=== PATIENT | male | born 1940 | race Caucasian/White ===

== ENCOUNTER 2023-06-05 17:09 | Inpatient (IN) | payer MEDICARE, SELFPAY ==
--- NOTE | ~2023-06-05 | XR_ITS ---
EXAMINATION: XR CHEST CLINICAL INFORMATION: Weakness COMPARISON: None available. TECHNIQUE: 2 views of the chest were obtained. FINDINGS: The cardiac silhouette is enlarged. There is a left subclavian single chamber pacemaker. Location of the lead is uncertain. This projects over the region of expected region of the tricuspid valve. The lungs are clear. No pleural effusion or pneumothorax. Elevated right hemidiaphragm. There are degenerative changes of the spine. XR/XR chest 2V IMPRESSION: Enlarged cardiac silhouette. Left subclavian single chamber pacemaker. Location of the lead is uncertain.
[2023-06-05 17:27] VITALS: BP 155/76; PULSE 67; RESP 26; TEMP 36.8; O2SAT 96; BMI 35.3
--- NOTE | 2023-06-05 17:28 | ED_ITS ---
HPI - General Adult General Chief complaint: Dyspnea Stated complaint: difficulty breathing Time Seen by Provider: 06/05/23 19:34 Source: patient and family ( son) Mode of arrival: ambulatory Limitations: altered mental status History of Present Illness HPI narrative: 83-year-old male brought in by his son for further evaluation of concern of shortness of breath. Family started to notice the patient started to decline l for the past few months, patient has been declining fast over the past 10 days also son noted that the patient is short of breath today with any minimal exertion has been coughing with lung congestion. patient is unable to give history and history mostly obtained from his son at the bedside. Related Data Allergies Allergy/AdvReac Type Severity Reaction Status Date / Time No Known Drug Allergies Allergy Unknown NONE Verified 06/05/23 17:38 [NO KNOWN DRUG ALLERGIES] Review of Systems 2 Review of Systems: Yes Unobtainable due to mental status PMFSH Social History Social History Advance Directives: No Advance Directives Information Provided: No Physical Exam ED Vital Signs: Vital Signs - 24 hr 06/05/23 17:27 Temperature 98.2 F Pulse Rate 67 Respiratory Rate 26 H Blood Pressure 155/76 H Pulse Oximetry 96 Oxygen Delivery Method Room Air BMI result Body Mass Index 35.3 Vital signs have been reviewed and appear to be correct. Blood pressure elevated. Heart rate normal. Respiratory rate normal. Temperature normal. Oxygen saturation normal. Appearance: Alert. oriented x1 only person. No acute distress. Head: Normal external exam. Normocephalic. Atraumatic. No Coleman signs noted. No raccoon eyes noted Eyes: PERRLA. EOMI. Conjunctiva and sclera normal. Eyelids normal. ENT: TM's Normal. Pharynx normal. Uvula midline. Moist mucous membranes. No trismus noted. No drooling noted. No muffled voice noted. Neck: Normal inspection. Neck supple. FROM. No adenopathy. Thyroid Normal. No meningeal signs. No neck mass noted. CVS: Normal heart rate and rhythm. Heart sound normal. No murmurs noted. Pulses normal throughout. Respiratory: No respiratory distress. Painless inspiration. Breath sounds normal. No wheezes/rales/rhonchi noted. Chest nontender. No accessory muscle usage noted or decreased air movement noted. Abdomen: Soft and nontender. Bowel sounds normal in all 4 quadrants. No distention noted. No organomegaly noted. No visible injury noted. Back: No CVA tenderness. Full range of motion noted. Skin: Skin warm and dry. Normal skin color. Normal skin turgor. No rashes/lesions/lacerations noted. Extremities: No lower extremity edema. Extremities exhibit normal range of motion. Extremities nontender. Neuro: Cranial nerve exam: II-XII are grossly intact No motor deficit. No sensory deficit. Reflexes normal. 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 Not answering questions appropriately. no recent falls. no fevers. No sick contacts. AOX2. Bilateral inspiratory and expiratory wheezing, rhonchi to right lung base. audible wheezing. 2+ pitting edema to b/l LE. Full HPI, ROS and PE to be performed by the primary ED provider. Reevaluation(s) Reevaluation #1: 83-year-old male with undiagnosed dementia came in for cognitive deterioration for the past year that is noticed to be more abrupt over the past 10 days, patient also been having dyspnea, patient has a minimal exacerbation of CHF with influenza a that can be contributed to his symptoms today. Will admit the patient still waiting on urine sample to rule out UTI. Time: 20:45 Medical Decision Making Differential Diagnosis Differential Diagnoses: The differential diagnosis associated with the presentation includes ( CHF, pneumonia, RSV, influenza, COVID 19, pneumothorax, electrolyte abnormality, severe anemia, UTI.) Admission/Observation Consideration of admission/observation: Escalation of care including admission/observation considered Consult Healthcare Provider Management of the patient was discussed with: Hospitalist ( Dr. Vieira) Lab Data MDM Lab Attestation statement: I reviewed the patient's lab results. 06/05/23 17:54 06/05/23 17:54 Labs: Lab Results 06/05/23 06/05/23 Range/Units 17:54 18:00 WBC 11.3 H (4.8-10.8) X10*3/uL RBC 5.08 (4.60-5.80) X10*6/uL Hgb 13.9 L (14.0-18.0) g/dl Hct 42.9 (42.0-52.0) % MCV 84.4 (80.0-98.0) fL MCH 27.4 (27.0-33.0) pg MCHC 32.4 (31.0-36.0) g/dl RDW 16.7 H (11.0-16.0) % Plt Count 166 (160-400) X10*3/uL MPV 10.6 (9.4-12.4) fL Immature Gran % (Auto) 0.4 (0.0-0.4) % Neut % (Auto) 88.1 H (45-73) % Lymph % (Auto) 5.7 L (20-40) % [place] % (Auto) 5.3 (2-11) % Eos % (Auto) 0.3 (0-4) % Baso % (Auto) 0.2 (0-2) % Lymph # (Auto) 0.6 L (1.2-4.9) X10*3/uL [place] # (Auto) 0.6 (0.1-1.2) X10*3/uL Eos # (Auto) 0.0 (0.0-0.4) X10*3/uL Baso # (Auto) 0.0 (0.0-0.2) X10*3/uL Abs Immat Gran (auto) 0.05 H (0.00-0.03) X10*3/uL Absolute Neuts (auto) 10.0 H (2.0-8.3) x10*3/uL Absolute Nucleated RBC 0.000 (0.0-0.012) X10*3/uL Nucleated RBC % (auto) 0.0 (0.0-0.2) /100WBC PT 17.9 H (11.1-13.3) SEC INR 1.5 H (0.9-1.1) VBG pH 7.41 (7.32-7.43) VBG pCO2 42 mmHg VBG pO2 46 mmHg VBG HCO3 27 H (22-26) mmol/L VBG O2 Saturation 71.0 % VBG Base Excess 2.3 mmol/L Sodium 142 (135-145) mmol/L Potassium 4.0 (3.3-5.1) mmol/L Chloride 105 (96-108) mmol/L Carbon Dioxide 27 (22-29) mmol/L Anion Gap 14 (12-20) BUN 31 H (9-16) mg/dL Creatinine 1.44 H (0.5-1.4) mg/dL Estim Creat Clear Calc 47.1 Estimated GFR 47 Random Glucose 118 H (60-115) mg/dL Calcium 8.8 (8.4-10.2) mg/dL Magnesium 1.9 (1.6-2.6) mg/dL Ammonia 15 (13-55) umol/L Troponin I High Sens 60.2 H (<3.5-35.0) ng/L B-Natriuretic Peptide 277 H (<100) pg/mL Lipase 8 (8-78) U/L Influenza Type A (PCR) POSITIVE A (Negative) Influenza Type B (PCR) NEGATIVE (Negative) RSV RNA Qual (PCR) NEGATIVE (Negative) SARS-CoV-2 RNA (RT-PCR) NEGATIVE (Negative) Independent Interpretation I performed an independent interpretation of an: EKG ( sinus rhythm at 76 beats per minutes with frequent PVCs, left axis diffusion, no ST-T changes.) and Plain X-Ray (Enlarged cardiac silhouette. Left subclavian single chamber pacemaker. Location of the lead is uncertain. ) Radiology Impression Discussion of test interpretation with radiology: I have reviewed the radiologist's reading. Discharge Plan Discharge Clinical Impression: Influenza A Congestive heart failure Qualifiers: Heart failure type: unspecified Patient Disposition: Admitted As Inpatient
--- NOTE | 2023-06-05 17:30 | ECG_ITS ---
Test Reason : WEAKNESS Blood Pressure : / mmHG Vent. Rate : 076 BPM Atrial Rate : 000 BPM P-R Int : 000 ms QRS Dur : 114 ms QT Int : 412 ms P-R-T Axes : 000 -48 087 degrees QTc Int : 463 ms suspect V paced rhythm with PVCs Left axis deviation Abnormal ECG When compared with ECG of 01-NOV-2015 12:51, rhythm change Referred By: Nirmala Philippe Electronically Signed By:ABIEL VILLATORO
[2023-06-05 18:02] LABS: MANUAL DIFF FLAG NO
[2023-06-05 18:03] LABS: Basophils Percent Auto 0.2 % (0-2); Eosinophils Percent Auto 0.3 % (0-4); Hematocrit 42.9 % (42.0-52.0); Hemoglobin 13.9 g/dl (14.0-18.0); Imm Gran Abs Auto 0.05 X10*3/uL (0.00-0.03); Imm Gran Pct Auto 0.4 % (0.0-0.4); Lymphocytes Absolute Auto 0.6 X10*3/uL (1.2-4.9); Lymphocytes Percent Auto 5.7 % (20-40); Mean Corpuscular HGB Conc 32.4 g/dl (31.0-36.0); Mean Corpuscular Hemoglobin 27.4 pg (27.0-33.0); Mean Corpuscular Volume 84.4 fL (80.0-98.0); Mean Platelet Volume 10.6 fL (9.4-12.4); Monocytes Absolute Auto 0.6 X10*3/uL (0.1-1.2); Monocytes Percent Auto 5.3 % (2-11); Neutrophils Percent Auto 88.1 % (45-73); Platelet Count 166 X10*3/uL (160-400); Red Blood Count 5.08 X10*6/uL (4.60-5.80); Red Cell Distribution Width 16.7 % (11.0-16.0); White Blood Count 11.3 X10*3/uL (4.8-10.8)
[2023-06-05 18:05] LABS: Venous Blood Gas Refer to POC result
[2023-06-05 18:05] LABS: VBG Base Excess 2.3 mmol/L; VBG HCO3 27 mmol/L (22-26); VBG pCO2 42 mmHg; VBG pH 7.41 (7.32-7.43); VBG pO2 46 mmHg
[2023-06-05 18:11] LABS: Ammonia 15 umol/L (13-55)
[2023-06-05 18:18] LABS: Anion Gap 14 (12-20); Blood Urea Nitrogen 31 mg/dL (9-16); Calcium 8.8 mg/dL (8.4-10.2); Carbon Dioxide 27 mmol/L (22-29); Chloride 105 mmol/L (96-108); Creatinine Clr Calc Pharmacy 47.1; Estimated Glomerular Filt Rate 47; Glucose Random 118 mg/dL (60-115); Lipase 8 U/L (8-78); Magnesium 1.9 mg/dL (1.6-2.6); Sodium 142 mmol/L (135-145)
[2023-06-05 18:20] LABS: INTERNATIONAL NORM RATIO 1.5 (0.9-1.1); Prothrombin Time 17.9 SEC (11.1-13.3)
[2023-06-05 18:23] LABS: Troponin-I High Sensitivity 60.2 ng/L (<3.5-35.0)
[2023-06-05 18:24] LABS: B Type Natriuretic Peptide 277 pg/mL (<100)
[2023-06-05 18:46] LABS: Influenza A PCR POSITIVE (Negative); Influenza B PCR NEGATIVE (Negative); Resp Syncy Virus RNA Qual PCR NEGATIVE (Negative); SARS COV2 PCR INHOUSE NEGATIVE (Negative)
[2023-06-05 20:55] VITALS: BP 165/80; PULSE 62; RESP 26; O2SAT 97
[2023-06-05] MEDS: Furosemide 20 MG/2 ML VIAL IVPUSH ×2 (21:07→22:13)
--- NOTE | 2023-06-05 21:26 | P.HPHOSP_ITS ---
History of Present Illness Date of Service: 06/05/23 Attending physician on admission: Trenton Vieira Chief Complaint: SOB Pt is an 83-year-old male with a PMH significant for?unspecified CHF, HTN, HLD, BPH, and GERD who presents to the ED from home for further evaluation of shortness of breath. Patient is alert and and oriented to self only; HPI is obtained stat from chart and provider review. Apparently patient was brought in by his son who noticed patient had been slowly declining cognitively and physically for the past few months, then precipitously for the past 10 days. Patient has been confused, not answering questions appropriately, generally unable to care for himself. Patient likely has a non-diagnosed underlying dementia. Son brought patient to the ED today after noticing he was wheezing, and became significantly short of breath with minimal exertion. Of note, son is no longer at bedside and could not verify HPI, PMH, or code status. Son should be contacted tomorrow to verify all of this information. In the ED pt was afebrile, but tachypneic up to 26, hypertensive up to 165/80, and satting at 97% on RA. Labs were significant for patient testing positive for influenza type a, wbc's 11.3, BUN 31, creatinine 1.44, troponin 60.2, and BNP 277. CXR showed enlarged cardiac silhouette without overt pleural effusion. EKG demonstrated accelerated junctional rhythm with frequent PVCs. Pt was treated with furosemide 20 mg IV. Pt will be admitted to the hospital for treatment and further evaluation of acute unspecified CHF exacerbation in the setting of influenza infection. Review of Systems 2 Review of Systems: Unable to obtain due to patient's mentation [facility] Medical History (Updated 06/05/23 @ 22:17 by YUKI Glover) GERD (gastroesophageal reflux disease) HTN (hypertension) BPH (benign prostatic hyperplasia) HLD (hyperlipidemia) Social History Advance Directives: No Advance Directives Information Provided: No Meds Allergies Allergy/AdvReac Type Severity Reaction Status Date / Time No Known Drug Allergies Allergy Unknown NONE Verified 06/05/23 17:38 [NO KNOWN DRUG ALLERGIES] Physical Exam 2 Vital Signs and Narrative: Vital Signs: Last Vital Signs Temp 98.2 F 06/05/23 17:27 Pulse 62 12/26/23 20:55 Resp 26 H 06/05/23 20:55 BP 165/80 H 06/05/23 20:55 Pulse Ox 97 06/05/23 20:55 O2 Del Method Room Air 06/05/23 20:55 BMI result Body Mass Index 35.3 Constitutional: Alert, confused, unable to answer appropriately, in no acute distress. Mental Status: Oriented to person only, not to place, time, situation Eyes: Pupils are equal, round, and reactive to light. Ear, Nose, and Throat: Oropharynx clear, mucous membranes moist. Ears and nose without deformities. Trachea midline. Respiratory: Diffuse bilateral expiratory wheezing. Cardiovascular: S1, S2 regular. No murmurs, rubs, or gallops. Gastrointestinal: Abdomen soft, non-tender, non-distended. Normal bowel sounds. Neurologic: Cranial nerves II-XII are grossly intact bilaterally. No focal neurological deficits. Moves all extremities spontaneously. Skin: Warm, dry. Musculoskeletal: No cyanosis or clubbing. Extremities: 2+ bilateral pitting edema. Psychiatric: Confused. Results Labs 06/05/23 17:54 06/05/23 17:54 Labs: Laboratory Results - last 24 hr 06/05/23 06/05/23 17:54 18:00 MCV 84.4 MCH 27.4 MCHC 32.4 RDW 16.7 H Plt Count 166 MPV 10.6 Immature Gran % (Auto) 0.4 Neut % (Auto) 88.1 H Lymph % (Auto) 5.7 L [place] % (Auto) 5.3 Eos % (Auto) 0.3 Baso % (Auto) 0.2 Lymph # (Auto) 0.6 L [place] # (Auto) 0.6 Eos # (Auto) 0.0 Baso # (Auto) 0.0 Abs Immat Gran (auto) 0.05 H Absolute Neuts (auto) 10.0 H Absolute Nucleated RBC 0.000 Nucleated RBC % (auto) 0.0 PT 17.9 H INR 1.5 H VBG pH 7.41 VBG pCO2 42 VBG pO2 46 VBG HCO3 27 H VBG O2 Saturation 71.0 VBG Base Excess 2.3 Anion Gap 14 Estim Creat Clear Calc 47.1 Estimated GFR 47 Random Glucose 118 H Calcium 8.8 Magnesium 1.9 Ammonia 15 B-Natriuretic Peptide 277 H Lipase 8 Influenza Type A (PCR) POSITIVE A Influenza Type B (PCR) NEGATIVE RSV RNA Qual (PCR) NEGATIVE SARS-CoV-2 RNA (RT-PCR) NEGATIVE Imaging Radiologist's Impressions: Impressions Chest X-Ray 06/05/23 18:10 IMPRESSION: Enlarged cardiac silhouette. Left subclavian single chamber pacemaker. Location of the lead is uncertain. Assessment and Plan (1) Influenza A: Status: Acute (2) Congestive heart failure: Qualifiers: Heart failure type: unspecified Heart failure chronicity: acute Qualified Code(s): I50.9 - Heart failure, unspecified Status: Acute Plan Pt is an 83-year-old male with a PMH significant for?unspecified CHF, HTN, HLD, BPH, and GERD who presents to the ED from home for further evaluation of shortness of breath. Pt will be admitted to the hospital for treatment and further evaluation of acute unspecified CHF exacerbation in the setting of influenza infection. Acute unspecified CHF exacerbation Likely secondary to influenza infection Increasing SOB, dyspnea, bilateral pitting edema, elevated BNP Will treat with Lasix 20 mg IV b.i.d. Follow lytes, mg, I/O Daily weights, low-salt diet Echocardiogram Consider Cardiology consult Monitor on telemetry Influenza A infection Patient with increasing SOB, wheezing, dyspnea Not hypoxic Will treat with Solu-Medrol, DuoNebs, Tamiflu, and benzonatate Monitor respiratory status Question of AYSE Creatinine 1.44, baseline unknown Possibly cardio renal d/t CHF Treat as above Follow BMP Elevated troponin Initial troponin 60.2 EKG without significant ischemic changes Will repeat troponin Monitor on telemetry Question of dementia Will get PT evaluation Consider psychiatry consult HLD Continue statin BPH Continue tamsulosin GERD Continue PPI Full Code Attending:?Dr. Vieira DVT Prophylaxis: On Xarelto Pt will require a hospitalization of at least two nights for treatment of?acute unspecified CHF exacerbation in the setting of influenza infection. Due to patient's underlying significant comorbidities of suspected dementia and cardiac issues, patient require aggressive diuresing with IV Lasix and treated influenza infection with breathing treatments, Tamiflu, and IV steroids. Quality Stroke Does the patient have a stroke diagnosis?: No VTE Prior VTE?: No VTE Risk Level:: Medical - moderate - high VTE Device Contraindication: Treatment Not Indicated VTE Drug Contraindication: N/A - Med Ordered
--- NOTE | 2023-06-05 22:00 | PC.NURSE ---
Pt A&O to self, denies any pain, confused taking EKG leads off, attempting to get OOB without assist, Pt redirected back to bed, refusing straight cath. Pt tachypneic with exertion, RR 26, SpO2 97% on RA, lung sounds wheezy. BLL edema noted. Skin pink, warm and dry, yellow bruising noted to left upper arm. IV line placed.
[2023-06-05] MEDS: methylPREDNISolone Sod Succ 40 MG/ML VIAL IVPUSH (22:12)
[2023-06-05] MEDS: Oseltamivir Phosphate 30 MG CAPSULE PO (23:18)
[2023-06-05] MEDS: 0.9 % Sodium Chloride Flush 3 ML SYRINGE IVFLUSH (23:18)
[2023-06-06] VITALS (11 sets, daily range): BP systolic 135–164; BP diastolic 65–89; PULSE 58–80; RESP 14–20; TEMP 36.2–36.8; O2SAT 94–98; BMI 35.3
--- NOTE | 2023-06-06 | ECG_ITS ---
Test Reason : f/u abn ekg Blood Pressure : / mmHG Vent. Rate : 068 BPM Atrial Rate : 000 BPM P-R Int : 000 ms QRS Dur : 120 ms QT Int : 420 ms P-R-T Axes : 000 -33 159 degrees QTc Int : 446 ms Ventricular-paced rhythm Premature ventricular complexes Left axis deviation Abnormal ECG When compared with ECG of 05-JUN-2023 17:42, fewer PVCs Referred By: Bettye Castillo Electronically Signed By:ABIEL VILLATORO
[2023-06-06 05:54] LABS: Hematocrit 42.5 % (42.0-52.0); Hemoglobin 13.7 g/dl (14.0-18.0); Mean Corpuscular HGB Conc 32.2 g/dl (31.0-36.0); Mean Corpuscular Hemoglobin 26.9 pg (27.0-33.0); Mean Corpuscular Volume 83.3 fL (80.0-98.0); Mean Platelet Volume 10.6 fL (9.4-12.4); Platelet Count 152 X10*3/uL (160-400); Red Cell Distribution Width 16.5 % (11.0-16.0); White Blood Count 8.2 X10*3/uL (4.8-10.8)
[2023-06-06 06:09] LABS: Anion Gap 15 (12-20); Blood Urea Nitrogen 30 mg/dL (9-16); Calcium 8.5 mg/dL (8.4-10.2); Carbon Dioxide 23 mmol/L (22-29); Chloride 106 mmol/L (96-108); Creatinine Clr Calc Pharmacy 57.5; Estimated Glomerular Filt Rate 59; Glucose Random 187 mg/dL (60-115); Magnesium 1.8 mg/dL (1.6-2.6); Potassium 3.8 mmol/L (3.3-5.1); Sodium 140 mmol/L (135-145)
--- NOTE | 2023-06-06 06:32 | PC.NURSE ---
Pt assisted to side of stretcher for urinal use. Urine collected and sent to lab.
[2023-06-06 06:43] LABS: Appearance Urine Clear; Color Urine Yellow; Glucose Urine UA Negative (Negative); Leukocyte Esterase Urine Negative (Negative); Nitrite Urine Negative (Negative); Specific Gravity - Urine 1.015 (1.005-1.025); UMIC TRIGGER UACC YES; Urine Blood Trace (Negative); Urine Ketones Negative (Negative); Urine Protein Trace mg/dL (Neg-Trace)
[2023-06-06 06:45] LABS: Bacteria Urine None Seen (None Seen); RBC Urine 0-2 /HPF (0-2); Squamous Epithelial Cell Urine 0-2 /HPF (0-2); WBC Urine 0-5 /HPF (0-5)
--- NOTE | 2023-06-06 07:00 | CA_ITS ---
Transthoracic Echocardiogram Patient (Last, First, Middle): Go Singh, Gender: Male Date of : 1940 Age: 83 Procedure Date: 06/06/2023 Procedure Type: Transthoracic Echocardiogram Location: [facility] [place] Height: 175.26 cm Weight: 108.41 kg BSA: 2.23 m2 Heart Rate: bpm BP: 135 / 78 mmHg Shipping Support: Referring MD: Perez MIRZA Symptoms: CHF exacerbation Study Quality: Adequate ECG Rhythm: Undetermined Conclusions: - The left ventricular systolic function is normal. The visually estimated ejection fraction is between 65-70%. - There is severe septal asymmetric hypertrophy. - Paradoxical, low-flow, low gradient, moderate to severe aortic stenosis. - There is mild dilatation of the ascending aorta measuring 4.10 cm. Findings Left Ventricle Normal left ventricular cavity size. There is moderately increased left ventricular wall thickness. The left ventricular systolic function is normal. The visually estimated ejection fraction is between 65-70%. There is no evidence of regional wall motion abnormalities. Diastolic function is indeterminate on the basis of available data. There is severe septal asymmetric hypertrophy. Right Ventricle Mildly increased right ventricular cavity size. There is normal right ventricular systolic function. There is a pacemaker wire seen in the right ventricle. Atria The left atrium is moderately dilated. The right atrium is normal in size. Aortic Valve There is moderate calcification of the aortic valve. The peak aortic velocity is 2.69 m/s with a calculated peak gradient of 29 mmHg. The mean gradient is 15 mmHg. The aortic valve area is 0.97 cm2. There is no aortic valve regurgitation. Dimensionless index 0.26. Stroke volume index 24ml/m2. Paradoxical, low-flow, low gradient, moderate to severe aortic stenosis. Mitral Valve The mitral valve appears normal. There is mild mitral annular calcification. There is trace mitral valve regurgitation. There is no mitral valve stenosis. Pulmonic Valve The pulmonic valve is likely normal. Tricuspid Valve There is mild tricuspid valve regurgitation. There is no evidence of pulmonary hypertension. Great Vessels There is mild dilatation of the ascending aorta measuring 4.10 cm. Venous The inferior vena cava was not well visualized. Pericardium/Pleural There is no evidence of pericardial effusion. Prior Study Comparison No prior study available for comparison. Measurements 2D Linear Measurements IVSd: 1.68 0.6-0.9/0.6-1.0 cm LVIDd: 4.95 3.9-5.3/4.2-5.9 cm LVIDd Index: 2.22 2.4-3.2/2.2-3.1 cm/m2 LVIDs: 3.34 2.0-3.6 cm LVPWd: 1.36 0.7-1.1 cm LA Diam: 4.90 2.7-3.8/3.0-4.0 cm LAIDs Index: 2.20 1.5-2.3 cm/m2 LV Mass: 404.35 67-162/88-224 g LV Mass Index: 181.32 43-95/49-115 g/m2 LVOT Diam: 2.10 3.0+(-)1.3 cm 2D Systolic Function EF 4C: 57.80 >55% EF 2C: 62.20 >55% EF BiP: 61.50 >55% Mitral Valve MV Pk E: 0.78 MV Decel Time: 272.00 E'Lateral: 11.00 E'Medial: 5.55 E/E' Med: 14.00 E/E' Lat: 7.10 PHT: 80.00 MVA PHT: 2.75 Decel Sutton: 2.86 Aortic Valve AoV Pk Calvin: 2.69 AoV Mn Calvin: 1.83 AoV VTI: 0.56 AoV Pk Grad: 29.00 Aov Mn Grad: 15.00 OLENA Cont.VTI: 0.97 LVOT LVOT Pk Calvin: 0.69 LVOT Mn Calvin: 0.50 LVOT VTI: 0.16 LVOT Pk Grad: 2.00 LVOT Mn Grad: 1.00 LVOT Diam: 2.10 LVOT Area: 3.46 Diastolic Function MV Pk E: 0.78 E'Medial: 5.55 E/E' Med: 14.00 E' Laterial: 11.00 E/E' Lat: 7.10 Right Ventricle TAPSE (mm): 23.40 TVS' Calvin: 12.70 Tricuspid Valve TR Pk Calvin: 2.77 TR Pk Grad: 31.00 Great Vessels Aorta Sinus of Valsalva: 3.80 2.0-3.5 cm Ao Asc: 4.10 2.1-3.4 cm Pulmonary Valve PV Pk Calvin: 0.90 Peak PV Grad: 3.00 Updated in Other Vendor System with Status of Final Trenton Wallace MD electronically signed on 06/06/2023 12:42:25 PM with status of Final
--- NOTE | 2023-06-06 08:16 | PHA.MEDREC ---
Pharmacy Consult ? Medication Reconciliation Pharmacy has completed the medication reconciliation.
[2023-06-06] MEDS: Albuterol/Iprat 2.5/0.5MG 3 ML AMPUL.NEB INHALE ×4 (08:35→19:39)
--- NOTE | 2023-06-06 08:38 | MHC.CM.PN ---
Patient is documented to be alert and oriented to self only; CM spoke with Daughter/HCP/Allison Godfrey @ [phone] and addressed IMM with her (original was left at bedside and a copy has been placed on the chart). Patient lives in a house with his and adult Son and he has both a cane and a walker to assist with mobility. PT is recommending STR and the first choice SNF is [facility]. CM has initiated and will follow for dc planning. Patient's PCP is Dr. Cindy Deutsch.
--- NOTE | 2023-06-06 08:47 | MHC.CM.PN ---
Patient's /Radha can be reached @ [phone].
[2023-06-06] MEDS: 0.9 % Sodium Chloride Flush 3 ML SYRINGE IVFLUSH ×2 (09:31→16:08)
[2023-06-06] MEDS: methylPREDNISolone Sod Succ 40 MG/ML VIAL IVPUSH ×2 (09:31→20:47)
[2023-06-06] MEDS: Tamsulosin HCL 0.4 MG CAPSULE PO (09:31)
[2023-06-06] MEDS: Oseltamivir Phosphate 30 MG CAPSULE PO ×2 (11:34→20:47)
[2023-06-06] MEDS: Finasteride 5 MG TABLET PO (11:35)
[2023-06-06] MEDS: Rivaroxaban 15 MG TABLET PO (11:35)
--- NOTE | 2023-06-06 11:35 | HO.PM.IMPN ---
Subjective Subjective Date of Service: 06/06/23 Interval History: Patient has advanced dementia unable to provide meaningful history. History obtained by patient's daughter and at bedside, as per patient was noted to be tired, more sleepy,weak, with shortness of breath and cough in last few days, his dementia seems to be worsening, he lives at home with who was unable to provide care at home. No fevers, no nausea, no vomiting or diarrhea. Review of Systems Unable to obtain review of system due to advanced dementia. Physical Exam Vital Signs: Vital Signs: Last Vital Signs Temp 97.9 F 06/06/23 09:58 Pulse 64 06/06/23 11:15 Resp 18 06/06/23 11:15 BP 150/76 H 06/06/23 09:58 Pulse Ox 96 06/06/23 09:58 O2 Del Method Room Air 06/06/23 09:58 BMI result Body Mass Index 35.3 Const: Other: General sitting comfortably in no acute distress, pleasantly confused. Neck no JVD. CVS regular rate rhythm, Respiratory lungs clear to auscultation, no respiratory distress, no wheeze, no rhonchi. Gastrointestinal abdomen soft, nontender, bowel sounds audible, no guarding , no rigidity. Extremities no edema. Neuro non focal ,moving all 4 extremity, speech clear. Skin no rash Psych poor insight Objective Data Active Medications Acetaminophen (Acetaminophen 325 Mg Tablet) 650 mg PO Q6H PRN PRN Reason: Pain, Mild (Pain Scale 1-3) Albuterol/Ipratropium (Albuterol/Iprat 2.5/0.5mg 3 Ml Ampul.Neb) 3 ml INHALE RQ4H WHILE AWAKE [facility] Last Admin: 06/06/23 11:10 Dose: 3 ml Documented By: HEAVEN Benzonatate (Benzonatate 100 Mg Capsule) 100 mg PO TID PRN PRN Reason: Cough Docusate Sodium (Docusate Sodium 100 Mg Capsule) 100 mg PO DAILY PRN PRN Reason: Constipation Finasteride (Finasteride 5 Mg Tablet) 5 mg PO DAILY [facility] Melatonin (Melatonin 3 Mg Tablet) 6 mg PO BEDTIME PRN PRN Reason: Insomnia Methylprednisolone Sodium Succinate (Methylprednisolone Sod Succ 40 Mg/Ml Vial) 40 mg IVPUSH Q12H [facility] Last Admin: 06/06/23 09:31 Dose: 40 mg Documented By: MACKENZIE Omeprazole (Omeprazole 20 Mg Capsule.Dr) 20 mg PO DAILY@0630 [facility] Ondansetron HCl (Ondansetron Hcl 4 Mg/2 Ml Vial) 4 mg IVPUSH Q8H PRN PRN Reason: Nausea and Vomiting Oseltamivir Phosphate (Oseltamivir Phosphate 30 Mg Capsule) 30 mg PO Q12H [facility] Stop: 06/10/23 10:01 Last Admin: 06/05/23 23:18 Dose: 30 mg Documented By: ROBY Pravastatin Sodium (Pravastatin Sodium 40 Mg Tablet) 40 mg PO BEDTIME [facility] Rivaroxaban (Rivaroxaban 15 Mg Tablet) 15 mg PO DAILY [facility] Sodium Chloride (0.9 % Sodium Chloride Flush 3 Ml Syringe) 3 ml IVFLUSH QSHIFT [facility] Last Admin: 06/06/23 09:31 Dose: 3 ml Documented By: MACKENZIE Tamsulosin HCl (Tamsulosin Hcl 0.4 Mg Capsule) 0.4 mg PO DAILY [facility] Last Admin: 06/06/23 09:31 Dose: 0.4 mg Documented By: MACKENZIE Labs 06/06/23 05:48 06/06/23 05:48 Labs: Laboratory Results - last 24 hr 06/05/23 06/05/23 06/06/23 17:54 18:00 05:48 MCV 84.4 83.3 MCH 27.4 26.9 L MCHC 32.4 32.2 RDW 16.7 H 16.5 H Plt Count 166 152 L MPV 10.6 10.6 Immature Gran % (Auto) 0.4 Neut % (Auto) 88.1 H Lymph % (Auto) 5.7 L [place] % (Auto) 5.3 Eos % (Auto) 0.3 Baso % (Auto) 0.2 Lymph # (Auto) 0.6 L [place] # (Auto) 0.6 Eos # (Auto) 0.0 Baso # (Auto) 0.0 Abs Immat Gran (auto) 0.05 H Absolute Neuts (auto) 10.0 H Absolute Nucleated RBC 0.000 0.000 Nucleated RBC % (auto) 0.0 0.0 PT 17.9 H INR 1.5 H VBG pH 7.41 VBG pCO2 42 VBG pO2 46 VBG HCO3 27 H VBG O2 Saturation 71.0 VBG Base Excess 2.3 Anion Gap 14 15 Estim Creat Clear Calc 47.1 57.5 Estimated GFR 47 59 Random Glucose 118 H 187 H Calcium 8.8 8.5 Magnesium 1.9 1.8 Ammonia 15 B-Natriuretic Peptide 277 H Lipase 8 Urine Color Urine Appearance Urine pH Ur Specific [place] Urine Protein Urine Glucose (UA) Urine Ketones Urine Blood Urine Nitrite Ur Leukocyte Esterase Urine RBC Urine WBC Ur Squamous Epith Cells Urine Bacteria Hyaline Casts Influenza Type A (PCR) POSITIVE A Influenza Type B (PCR) NEGATIVE RSV RNA Qual (PCR) NEGATIVE SARS-CoV-2 RNA (RT-PCR) NEGATIVE 06/06/23 06:35 MCV MCH MCHC RDW Plt Count MPV Immature Gran % (Auto) Neut % (Auto) Lymph % (Auto) [place] % (Auto) Eos % (Auto) Baso % (Auto) Lymph # (Auto) [place] # (Auto) Eos # (Auto) Baso # (Auto) Abs Immat Gran (auto) Absolute Neuts (auto) Absolute Nucleated RBC Nucleated RBC % (auto) PT INR VBG pH VBG pCO2 VBG pO2 VBG HCO3 VBG O2 Saturation VBG Base Excess Anion Gap Estim Creat Clear Calc Estimated GFR Random Glucose Calcium Magnesium Ammonia B-Natriuretic Peptide Lipase Urine Color Yellow Urine Appearance Clear Urine pH 5.0 Ur Specific [place] 1.015 Urine Protein Trace Urine Glucose (UA) Negative Urine Ketones Negative Urine Blood Trace H Urine Nitrite Negative Ur Leukocyte Esterase Negative Urine RBC 0-2 Urine WBC 0-5 Ur Squamous Epith Cells 0-2 Urine Bacteria None Seen Hyaline Casts 3-5 Influenza Type A (PCR) Influenza Type B (PCR) RSV RNA Qual (PCR) SARS-CoV-2 RNA (RT-PCR) Assessment and Plan (1) Influenza A: Status: Acute (2) Congestive heart failure: Status: Acute Plan 83-year-old male with a PMH significant for?unspecified CHF, HTN, HLD, BPH, and GERD who presents to the ED from home for further evaluation of shortness of breath. Pt will be admitted to the hospital for treatment and further evaluation of acute unspecified CHF exacerbation in the setting of influenza infection. Acute Diastolic CHF exacerbation Likely secondary to influenza infection Shortness of breath and leg edema resolved ,will DC IV Lasix 20 mg b.i.d. and transition to by mouth Lasix home dose stable electrolytes and renal function Daily weights, low-salt diet Echocardiogram showed moderate to severe aortic stenosis, EF 65-70%, diastolic function is indeterminate on the basis of available data, there is severe septal asymmetric hypertrophy Recommend outpatient follow-up with Cardiology Influenza A infection Not hypoxic continue iv Solu-Medrol, DuoNebs, Tamiflu, and benzonatate Monitor respiratory status PT eval for safe disposition Question of AYSE Creatinine 1.44, baseline unknown, repeat creatinine normalized, follow BMP, likely dehydration due to decreased by mouth intake Elevated troponin Initial troponin 60.2, repeat 77 No arrhythmias on tele monitor no complain of chest pain continue home medications amlodipine, Pravachol, and Plavix Unspecified dementia no behavioral issues HLD Continue statin BPH Continue Flomax and finasteride GERD Continue PPI Full Code DVT Prophylaxis: On Xarelto Pt will need continued inpatient hospitalization for treatment of?acute CHF exacerbation in the setting of influenza infection. Quality Stroke Does the patient have a stroke diagnosis?: No VTE Prior VTE?: No VTE Risk Level:: Medical - moderate - high VTE Device Contraindication: Treatment Not Indicated VTE Drug Contraindication: N/A - Med Ordered
[2023-06-06] MEDS: Pravastatin Sodium 40 MG TABLET PO (20:47)
[2023-06-06] MEDS: Furosemide 20 MG TABLET PO (20:47)
[2023-06-07] VITALS (8 sets, daily range): BP systolic 135–147; BP diastolic 61–75; PULSE 59–67; RESP 13–20; TEMP 36.2–36.8; O2SAT 92–98
[2023-06-07] MEDS: 0.9 % Sodium Chloride Flush 3 ML SYRINGE IVFLUSH ×3 (00:04→15:16)
[2023-06-07 06:22] LABS: Anion Gap 15 (12-20); Blood Urea Nitrogen 39 mg/dL (9-16); Calcium 8.5 mg/dL (8.4-10.2); Carbon Dioxide 21 mmol/L (22-29); Chloride 102 mmol/L (96-108); Creatinine Clr Calc Pharmacy 50.3; Estimated Glomerular Filt Rate 50; Glucose Random 268 mg/dL (60-115); Magnesium 2.1 mg/dL (1.6-2.6); Potassium 3.8 mmol/L (3.3-5.1); Sodium 134 mmol/L (135-145)
[2023-06-07] MEDS: Omeprazole 20 MG CAPSULE.DR PO (07:31)
[2023-06-07] MEDS: amLODIPine Besylate 10 MG TABLET PO (07:31)
[2023-06-07] MEDS: Finasteride 5 MG TABLET PO (07:32)
[2023-06-07] MEDS: Rivaroxaban 15 MG TABLET PO (07:32)
[2023-06-07] MEDS: Tamsulosin HCL 0.4 MG CAPSULE PO (07:32)
[2023-06-07] MEDS: Clopidogrel Bisulfate 75 MG TABLET PO (07:32)
[2023-06-07] MEDS: Furosemide 20 MG TABLET PO ×2 (07:36→21:26)
[2023-06-07] MEDS: Albuterol/Iprat 2.5/0.5MG 3 ML AMPUL.NEB INHALE ×3 (07:47→19:26)
[2023-06-07] MEDS: Oseltamivir Phosphate 30 MG CAPSULE PO ×2 (09:00→21:26)
[2023-06-07] MEDS: methylPREDNISolone Sod Succ 40 MG/ML VIAL IVPUSH (09:00)
--- NOTE | 2023-06-07 13:52 | HO.PM.IMPN ---
Subjective Subjective Date of Service: 06/07/23 Interval History: Events from last night noted, patient was restless trying to jump out of bed therefore sitter placed, this morning patient is calm remains pleasantly confused offers no acute complaints, daughter and son are at bedside. No fevers noted, no nausea no vomiting no diarrhea tolerating diet. Review of Systems Unable to obtain due to dementia. Physical Exam Vital Signs: Vital Signs: Last Vital Signs Temp 97.5 F 06/07/23 11:14 Pulse 67 06/07/23 11:33 Resp 18 06/07/23 11:33 BP 136/63 06/07/23 11:14 Pulse Ox 95 06/07/23 11:14 O2 Del Method Room Air 06/07/23 11:14 BMI result Body Mass Index 35.3 Const: Other: General resting comfortably in no acute distress, pleasantly confused. Neck no JVD. CVS regular rate rhythm, Respiratory lungs clear to auscultation, no respiratory distress, no wheeze, no rhonchi. Gastrointestinal abdomen soft, non tender, bowel sounds audible, no guarding , no rigidity. Extremities no edema. Neuro non focal ,moving all 4 extremity, speech clear. Skin no rash Psych poor insight Objective Data Active Medications Acetaminophen (Acetaminophen 325 Mg Tablet) 650 mg PO Q6H PRN PRN Reason: Pain, Mild (Pain Scale 1-3) Albuterol/Ipratropium (Albuterol/Iprat 2.5/0.5mg 3 Ml Ampul.Neb) 3 ml INHALE RQ4H WHILE AWAKE [facility] Last Admin: 06/07/23 11:31 Dose: 3 ml Documented By: GIFTY Amlodipine Besylate (Amlodipine Besylate 10 Mg Tablet) 10 mg PO DAILY [facility]; Protocol Last Admin: 06/07/23 07:31 Dose: 10 mg Documented By: ROBE Benzonatate (Benzonatate 100 Mg Capsule) 100 mg PO TID PRN PRN Reason: Cough Clopidogrel Bisulfate (Clopidogrel Bisulfate 75 Mg Tablet) 75 mg PO DAILY [facility] Last Admin: 06/07/23 07:32 Dose: 75 mg Documented By: ROBE Docusate Sodium (Docusate Sodium 100 Mg Capsule) 100 mg PO DAILY PRN PRN Reason: Constipation Finasteride (Finasteride 5 Mg Tablet) 5 mg PO DAILY [facility] Last Admin: 06/07/23 07:32 Dose: 5 mg Documented By: ROBE Furosemide (Furosemide 20 Mg Tablet) 20 mg PO BID [facility]; Protocol Last Admin: 06/07/23 07:36 Dose: 20 mg Documented By: ROBE Melatonin (Melatonin 3 Mg Tablet) 6 mg PO BEDTIME PRN PRN Reason: Insomnia Methylprednisolone Sodium Succinate (Methylprednisolone Sod Succ 40 Mg/Ml Vial) 40 mg IVPUSH Q12H [facility] Last Admin: 06/07/23 09:00 Dose: 40 mg Documented By: ANGUS Omeprazole (Omeprazole 20 Mg Capsule.) 20 mg PO DAILY@0630 [facility] Last Admin: 06/07/23 07:31 Dose: 20 mg Documented By: ROBE Ondansetron HCl (Ondansetron Hcl 4 Mg/2 Ml Vial) 4 mg IVPUSH Q8H PRN PRN Reason: Nausea and Vomiting Oseltamivir Phosphate (Oseltamivir Phosphate 30 Mg Capsule) 30 mg PO Q12H [facility] Stop: 06/10/23 10:01 Last Admin: 06/07/23 09:00 Dose: 30 mg Documented By: ANGUS Pravastatin Sodium (Pravastatin Sodium 40 Mg Tablet) 40 mg PO BEDTIME [facility] Last Admin: 06/06/23 20:47 Dose: 40 mg Documented By: DARIO Rivaroxaban (Rivaroxaban 15 Mg Tablet) 15 mg PO DAILY [facility] Last Admin: 06/07/23 07:32 Dose: 15 mg Documented By: ROBE Sodium Chloride (0.9 % Sodium Chloride Flush 3 Ml Syringe) 3 ml IVFLUSH QSHIFT [facility] Last Admin: 06/07/23 07:34 Dose: 3 ml Documented By: ROBE Tamsulosin HCl (Tamsulosin Hcl 0.4 Mg Capsule) 0.4 mg PO DAILY [facility] Last Admin: 06/07/23 07:32 Dose: 0.4 mg Documented By: ROBE Labs 06/06/23 05:48 06/07/23 05:44 Labs: Laboratory Results - last 24 hr 06/07/23 05:44 Anion Gap 15 Estim Creat Clear Calc 50.3 Estimated GFR 50 Random Glucose 268 H Calcium 8.5 Magnesium 2.1 Assessment and Plan (1) Influenza A: Status: Acute (2) Congestive heart failure: Status: Acute Plan 83-year-old male with a PMH significant for?unspecified CHF, HTN, HLD, BPH, and GERD who presents to the ED from home for further evaluation of shortness of breath. Pt will be admitted to the hospital for treatment and further evaluation of acute unspecified CHF exacerbation in the setting of influenza infection. Acute Diastolic CHF exacerbation Likely secondary to influenza infection Shortness of breath and leg edema resolved ,s/p IV Lasix 20 mg b.i.d., now on by mouth Lasix home dose stable electrolytes and renal function Daily weights, low-salt diet Echocardiogram showed moderate to severe aortic stenosis, EF 65-70%, diastolic function is indeterminate on the basis of available data, there is severe septal asymmetric hypertrophy Recommend outpatient follow-up with Cardiology. Influenza A infection Not hypoxic Wean iv Solu-Medrol and DuoNebs,cont. Tamiflu, and benzonatate. Monitor respiratory status. Question of AYSE Creatinine 1.44, baseline unknown, repeat creatinine is stable likely due to dehydration with influenza Elevated troponin Initial troponin 60.2, repeat 77 No arrhythmias on tele monitor,no complain of chest pain continue home medications amlodipine, Pravachol, and Plavix Unspecified dementia no behavioral issues. HLD Continue statin BPH Continue Flomax and finasteride GERD Continue PPI Full Code DVT Prophylaxis: On Xarelto Pt will need continued inpatient hospitalization for treatment of?acute CHF exacerbation in the setting of influenza infection. Seen by PT they recommend short-term rehab cm arranging for safe discharge Quality Stroke Does the patient have a stroke diagnosis?: No VTE Prior VTE?: No VTE Risk Level:: Medical - moderate - high VTE Device Contraindication: Treatment Not Indicated VTE Drug Contraindication: N/A - Med Ordered
--- NOTE | 2023-06-07 18:39 | PC.NURSE ---
ambulated to the bathroom at 18:30 , pt had urine incontinence and also urinated and had bowel movement using toilet . Sponge bath provided , pt ambulated on the hallway with the walker with 1 assist 200 feet and tolerated well. Bed linen were changed pt is back to bed and watching TV now
[2023-06-07] MEDS: Pravastatin Sodium 40 MG TABLET PO (21:26)
[2023-06-08] VITALS: BP 184/82; PULSE 80; RESP 20; TEMP 36.7; O2SAT 98
[2023-06-08 03:01] VITALS: BP 150/73; PULSE 62; RESP 20; TEMP 36.5; O2SAT 91
[2023-06-08 06:24] LABS: Anion Gap 14 (12-20); Blood Urea Nitrogen 42 mg/dL (9-16); Calcium 8.6 mg/dL (8.4-10.2); Carbon Dioxide 23 mmol/L (22-29); Chloride 103 mmol/L (96-108); Creatinine Clr Calc Pharmacy 49.9; Estimated Glomerular Filt Rate 50; Glucose Random 199 mg/dL (60-115); Potassium 3.9 mmol/L (3.3-5.1); Sodium 136 mmol/L (135-145)
[2023-06-08] MEDS: Omeprazole 20 MG CAPSULE.DR PO (06:33)
[2023-06-08] MEDS: Albuterol/Iprat 2.5/0.5MG 3 ML AMPUL.NEB INHALE (07:57)
[2023-06-08 08:00] VITALS: BP 124/65; PULSE 67; PULSE 68; RESP 18; RESP 20; TEMP 36.6; O2SAT 94; O2SAT 99
[2023-06-08 09:20] VITALS: BP 124/65; PULSE 67; O2SAT 94
[2023-06-08] MEDS: Oseltamivir Phosphate 30 MG CAPSULE PO (09:39)
[2023-06-08] MEDS: predniSONE 20 MG TABLET PO (09:39)
[2023-06-08] MEDS: amLODIPine Besylate 10 MG TABLET PO (09:39)
[2023-06-08] MEDS: Rivaroxaban 15 MG TABLET PO (09:39)
[2023-06-08] MEDS: Clopidogrel Bisulfate 75 MG TABLET PO (09:39)
[2023-06-08] MEDS: Tamsulosin HCL 0.4 MG CAPSULE PO (09:39)
[2023-06-08] MEDS: Finasteride 5 MG TABLET PO (09:39)
[2023-06-08] MEDS: 0.9 % Sodium Chloride Flush 3 ML SYRINGE IVFLUSH (09:40)
--- NOTE | 2023-06-08 11:26 | P.DS_ITS ---
DS: Providers Provider Date of Service: 06/08/23 Date of admission: 06/05/23 21:52 Primary care physician: Cindy Deutsch MD DS: Diagnosis Discharge Diagnosis (1) Influenza A: Status: Acute (2) Congestive heart failure: Status: Acute DS: Summary Hospital Course Hospital Course: History of presenting illness: Date of Service: 06/05/23 Attending physician on admission: Trenton Vieira Chief Complaint: SOB Pt is an 83-year-old male with a PMH significant for?unspecified CHF, HTN, HLD, BPH, and GERD who presents to the ED from home for further evaluation of shortness of breath. Patient is alert and and oriented to self only; HPI is obtained stat from chart and provider review. Apparently patient was brought in by his son who noticed patient had been slowly declining cognitively and physically for the past few months, then precipitously for the past 10 days. Patient has been confused, not answering questions appropriately, generally unable to care for himself. Patient likely has a non-diagnosed underlying dementia. Son brought patient to the ED today after noticing he was wheezing, and became significantly short of breath with minimal exertion. Of note, son is no longer at bedside and could not verify HPI, PMH, or code status. Son should be contacted tomorrow to verify all of this information. In the ED pt was afebrile, but tachypneic up to 26, hypertensive up to 165/80, and satting at 97% on RA. Labs were significant for patient testing positive for influenza type a, wbc's 11.3, BUN 31, creatinine 1.44, troponin 60.2, and BNP 277. CXR showed enlarged cardiac silhouette without overt pleural effusion. EKG demonstrated accelerated junctional rhythm with frequent PVCs. Pt was treated with furosemide 20 mg IV. Pt will be admitted to the hospital for treatment and further evaluation of acute unspecified CHF exacerbation in the setting of influenza infection. Hospital course: 83-year-old male with a PMH significant for?unspecified CHF, HTN, HLD, BPH, and GERD who presents to the ED from home for further evaluation of shortness of breath. Pt will be admitted to the hospital for treatment and further evaluation of acute unspecified CHF exacerbation in the setting of influenza i nfection. Acute Diastolic CHF exacerbation, Likely secondary to influenza infection treated with IV Lasix 20 mg b.i.d., shortness of breath and leg edema resolved recommend to continue home dose of Lasix renal function and electrolytes as stable, Echocardiogram showed moderate to severe aortic stenosis, EF 65-70%, diastolic function is indeterminate on the basis of available data, there is severe septal asymmetric hypertrophy,recommend outpatient follow-up with Cardiology. Influenza A infection no hypoxia, no shortness of breath continue Tamiflu, prednisone and benzonatate. AYSE Creatinine 1.44, repeat creatinine improved to 1.3 , likely due to dehydration with influenza. Elevated troponin Initial troponin 60.2, repeat 77, No arrhythmias on tele monitor,no complain of chest pain continue home medications amlodipine, Pravachol, and Plavix Unspecified dementia no behavioral issues. BPH Continue Flomax and finasteride GERD Continue PPI Time Attestation Discharge coordination time: Greater than 30 minutes Quality: Safe Use of Opioids Does Pt have an Active Cancer Diagnosis on the Problem List?: No Quality: Stroke Does the patient have a stroke diagnosis?: No Physical Exam Vital Signs: Vital Signs: Last Vital Signs Temp 97.9 F 06/08/23 08:00 Pulse 67 06/08/23 09:20 Resp 18 06/08/23 08:00 BP 124/65 06/08/23 09:20 Pulse Ox 94 06/08/23 09:20 O2 Del Method Room Air 06/08/23 08:00 BMI result Body Mass Index 35.3 Const: Other: General resting comfortably in no acute distress, pleasantly confused. Neck no JVD. CVS regular rate rhythm, Respiratory lungs clear to auscultation, no respiratory distress, no wheeze, no rhonchi. Gastrointestinal abdomen soft, non tender, bowel sounds audible, no guarding , no rigidity. Extremities no edema. Neuro non focal ,moving all 4 extremity, speech clear. Skin no rash Psych poor insight DS: Data Data Completed and Pending Labs on day of discharge: Laboratory Results - last 24 hr 06/08/23 05:53 Hold Purple Top SEE NOTE Sodium 136 Potassium 3.9 Chloride 103 Carbon Dioxide 23 Anion Gap 14 BUN 42 H Creatinine 1.36 Estim Creat Clear Calc 49.9 Estimated GFR 50 Random Glucose 199 H Calcium 8.6 Magnesium 2.0 Discharge Plan Discharge Anticipated Discharge Date/Time: 06/08/23 11:18 Patient Disposition: Xfer SNF Discharge Diagnosis: Acute diastolic congestive heart failure Influenza a infection Referrals: Cindy Deutsch MD [Primary Care Provider] - 1 Week Discharge Medications: New benzonatate 100 mg Capsule 100 mg PO TID PRN (Reason: Cough) Qty: 20 0RF prednisone 20 mg Tablet 20 mg PO DAILY Qty: 4 0RF oseltamivir 30 mg Capsule 30 mg PO Q12H Qty: 5 0RF Continued pravastatin 40 mg tablet 40 mg PO QPM melatonin 3 mg tablet 3 mg PO BEDTIME PRN (Reason: Sleep) clopidogrel 75 mg tablet 75 mg PO DAILY tamsulosin 0.4 mg capsule 0.4 mg PO DAILY amlodipine 10 mg tablet 10 mg PO DAILY pantoprazole 40 mg tablet,delayed release (DR/EC) 40 mg PO DAILY furosemide 20 mg tablet 20 mg PO BID finasteride 5 mg tablet 5 mg PO DAILY solifenacin 10 mg tablet 10 mg PO DAILY Xarelto 15 mg tablet 15 mg PO DAILY Discharge Orders: Discharge Order (Routine); Ordered 06/08/23 Ordered By: Bettye Castillo Diet: Advance to usual diet Activity on Discharge: As tolerated Stand Alone Forms: Patient Portal Discharge page Care Plan Goals: Influenza A causing weakness take time of fluid as recommended/prednisone as recommended/cough medication as needed CHF resolved follow-up with Cardiology as outpatient Health Concerns: Continue all home inhalers Plan of Treatment: Follow-up with primary care physician call for appointment. Assessment: as tolerated
--- NOTE | 2023-06-08 11:38 | MHC.CM.PN ---
Pt has been medically cleared for DC. He will go to [facility] for STR. CM worked with family on 06/07/23 to determine their choice of STR, and they chose [facility]. Pt will be transferred today via BLS.
[2023-06-08 11:50] VITALS: BP 151/85; PULSE 65; RESP 18; TEMP 36.6; O2SAT 94
== END 2023-06-08 12:40 | disposition skilled nursing facility (03) | DRG 193 ==
LOC: HO.ED 20:53 → HO.EDOVER 22:06 → HO.IMC 06-06 07:37
PROVIDERS: Physician Assistant Medical; Admitting Provider Student in an Organized Health Care Education/Training Program; Emergency Provider Emergency Medicine; PCP Internal Medicine Medical Oncology; Visit Provider Hospitalist
DX: J10.1 Influenza due to other identified influenza virus with other respiratory manifestations (principal); I50.33 Acute on chronic diastolic (congestive) heart failure; N17.9 Acute kidney failure, unspecified; K21.9 Gastro-esophageal reflux disease without esophagitis; F03.90 Unspecified dementia, unspecified severity, without behavioral disturbance, psychotic disturbance, mood disturbance, and anxiety; Z95.0 Presence of cardiac pacemaker; I11.0 Hypertensive heart disease with heart failure; E86.0 Dehydration; Z79.01 Long term (current) use of anticoagulants; Z79.02 Long term (current) use of antithrombotics/antiplatelets; Z79.899 Other long term (current) drug therapy
CPT/HCPCS: 0241U; 36415; 71046; 80048; 81001; 82140; 82803; 83690; 83735; 83880; 84484; 85025; 85027; 85610; 93005; 93306; 94640; 97116; 97162; 99285; J1940; J2920; Q9957

== ENCOUNTER → 2023-06-05 17:30 | Outpatient (BNV) | payer MEDICARE, SELFPAY | PROVIDERS: Admitting Provider Student in an Organized Health Care Education/Training Program; Emergency Provider Emergency Medicine; PCP Internal Medicine Medical Oncology; Visit Provider Internal Medicine | DX: I50.9 Heart failure, unspecified (principal); I49.3 Ventricular premature depolarization | CPT/HCPCS: 93010 ==

== ENCOUNTER 2023-06-05 21:52 | Outpatient (BNV) | payer MEDICARE, SELFPAY | END 2023-06-06 07:00 | PROVIDERS: Admitting Provider Student in an Organized Health Care Education/Training Program; Emergency Provider Emergency Medicine; PCP Internal Medicine Medical Oncology; Visit Provider Internal Medicine | DX: I50.9 Heart failure, unspecified (principal) | CPT/HCPCS: 93010; 93306 ==

== ENCOUNTER → 2023-06-05 21:52 | Outpatient (BNV) | payer MEDICARE, SELFPAY | PROVIDERS: Admitting Provider Student in an Organized Health Care Education/Training Program; Emergency Provider Emergency Medicine; PCP Internal Medicine Medical Oncology; Visit Provider Student in an Organized Health Care Education/Training Program | DX: J10.1 Influenza due to other identified influenza virus with other respiratory manifestations (principal); I50.9 Heart failure, unspecified | CPT/HCPCS: 99223; 99233; 99239 ==

== ENCOUNTER 2023-07-25 16:29 | Emergency (ER) | payer MEDICARE, SELFPAY ==
--- NOTE | ~2023-07-25 | XR_ITS ---
EXAMINATION: XR KNEE, BILATERAL CLINICAL INFORMATION: Pain COMPARISON: None available. TECHNIQUE: 4 views of each knee FINDINGS: RIGHT: Status post right knee arthroplasty. Orthopedic hardware is grossly intact. Osteopenia. No acute visible fracture or dislocation. Joint spaces and alignment are maintained. A fabella is noted in the posterior compartment. No large knee joint effusion. Soft tissues are unremarkable. Atherosclerotic calcifications are noted. LEFT: Status post right knee arthroplasty. Orthopedic hardware is grossly intact. Osteopenia. No acute visible fracture or dislocation. Joint spaces and alignment are maintained. A fabella is noted in the posterior compartment. No large knee joint effusion. Soft tissues are unremarkable. Atherosclerotic calcifications are noted. XR/XR knee LT 3V IMPRESSION: 1. No acute visible fracture or dislocation. 2. Bilateral knee arthroplasty with intact orthopedic hardware. 3. Osteopenia.
--- NOTE | ~2023-07-25 | US_ITS ---
EXAMINATION: US VENOUS ULTRASOUND WITH DOPPLER LOWER EXTREMITY, LEFT CLINICAL INFORMATION: Left lower leg pain. COMPARISON: None available. TECHNIQUE: Ultrasound of the deep veins is performed from the hip to the calf with compression sonography and color and pulse Doppler assessment. Spectral analysis with color-flow imaging is performed. FINDINGS: There is normal venous compression and respiratory variation and augmented flow. The visualized common femoral vein, superficial femoral vein, profunda femoral vein, popliteal vein, and the trifurcation region shows no evidence of deep venous thrombosis. There is no significant popliteal fossa cyst. If the patient's symptoms persist, followup ultrasound in 5 days 7 days might be of value to exclude proximal propagation from a non-visualized calf vein. US/US venous duplex LE IMPRESSION: No DVT demonstrated in the left lower extremity.
--- NOTE | ~2023-07-25 | XR_ITS ---
EXAMINATION: XR KNEE, BILATERAL CLINICAL INFORMATION: Pain COMPARISON: None available. TECHNIQUE: 4 views of each knee FINDINGS: RIGHT: Status post right knee arthroplasty. Orthopedic hardware is grossly intact. Osteopenia. No acute visible fracture or dislocation. Joint spaces and alignment are maintained. A fabella is noted in the posterior compartment. No large knee joint effusion. Soft tissues are unremarkable. Atherosclerotic calcifications are noted. LEFT: Status post right knee arthroplasty. Orthopedic hardware is grossly intact. Osteopenia. No acute visible fracture or dislocation. Joint spaces and alignment are maintained. A fabella is noted in the posterior compartment. No large knee joint effusion. Soft tissues are unremarkable. Atherosclerotic calcifications are noted. XR/XR knee RT 3V IMPRESSION: 1. No acute visible fracture or dislocation. 2. Bilateral knee arthroplasty with intact orthopedic hardware. 3. Osteopenia.
[2023-07-25 17:08] VITALS: BP 135/83; PULSE 79; RESP 16; TEMP 36.4; O2SAT 98; BMI 30.1
--- NOTE | 2023-07-25 17:36 | ED.GENADULT ---
HPI - General Adult General Chief complaint: Extremity Injury, Lower Stated complaint: knee swelling and pain since yesterday Time Seen by Provider: 07/25/23 22:35 Source: patient, family and old records reviewed Mode of arrival: ambulatory Limitations: no limitations History of Present Illness HPI narrative: 83 yo male with PMH of CHF, HTN, BPH, GERD, cognitive impairment, anticoagulated on xarelto here with c/o 3 months of left leg pain at this time he c/o pain worse today with walking - no trauma, fevers, redness, increased swelling. He has no new weakness, was able to use his exercise bike. He denies falls. denies injury. He has had this for a while. She is upset becasue his PCP will not see him until September. MD complaint: leg pain Onset (ago): month(s) (3) Location: left and lower extremity Radiation: non-radiation Severity: moderate Quality: aching Pain Consistency: intermittent Relieving factors: rest Exacerbating factors: movement Associated symptoms: denies other symptoms Treatments prior to arrival: none Related Data Home Medications Medication Instructions Recorded Confirmed amlodipine 10 mg tablet 10 mg PO DAILY 06/06/23 06/06/23 clopidogrel 75 mg tablet 75 mg PO DAILY 06/06/23 06/06/23 finasteride 5 mg tablet 5 mg PO DAILY 06/06/23 06/06/23 furosemide 20 mg tablet 20 mg PO BID 06/06/23 06/06/23 melatonin 3 mg tablet 3 mg PO BEDTIME PRN Sleep 06/06/23 06/06/23 pantoprazole 40 mg tablet,delayed 40 mg PO DAILY 06/06/23 06/06/23 release pravastatin 40 mg tablet 40 mg PO QPM 06/06/23 06/06/23 rivaroxaban 15 mg tablet (Xarelto) 15 mg PO DAILY 06/06/23 06/06/23 solifenacin 10 mg tablet 10 mg PO DAILY 06/06/23 06/06/23 tamsulosin 0.4 mg capsule 0.4 mg PO DAILY 06/06/23 06/06/23 Previous Rx's Medication Instructions Recorded benzonatate 100 mg capsule 100 mg PO TID PRN Cough #20 caps 06/08/23 oseltamivir 30 mg capsule 30 mg PO Q12H #5 caps 06/08/23 prednisone 20 mg tablet 20 mg PO DAILY #4 tabs 06/08/23 Allergies Allergy/AdvReac Type Severity Reaction Status Date / Time No Known Drug Allergies Allergy Unknown NONE Verified 07/25/23 17:07 [NO KNOWN DRUG ALLERGIES] Review of Systems Review of Systems: Constitutional : No Fever, No Chills ENT/Mouth : No Ear Pain, No Hoarseness, No sore throat Eyes: No Eye Pain, No Swelling, No Redness, No Foreign Body Cardiovascular : No Chest Pain, No SOB Respiratory : No Cough, No Dyspnea Gastrointestinal : No Nausea, No Vomiting, No Diarrhea, No abdominal Pain Genitourinary : No Dysuria, No Hematuria Musculoskeletal : positive joint pain, No Myalgias, pos Joint Swelling Skin : No Skin lacerations, No rash Neuro : No Weakness, No Numbness, No Loss of Consciousness, No Dizziness, No Headache All other systems reviewed and are negative [facility] Past Medical History Attestation statement: The following information was validated with the patient. Source: old records reviewed Medical History GERD (gastroesophageal reflux disease) HTN (hypertension) BPH (benign prostatic hyperplasia) HLD (hyperlipidemia) Social History Social History Household Members: Significant Other Housing: House Do you presently have visiting nurse or other home services: No Alcohol intake: never Comment: 1:1 sitter Patient Tobacco Use Status: Never used Tobacco Second Hand Smoke Exposure: No Advance Directives Date on File: 06/06/23 service: No Physical Exam ED Vital Signs: Vital Signs - 24 hr 07/25/23 17:08 07/25/23 20:41 Temperature 97.5 F 97.8 F Pulse Rate 79 65 Respiratory Rate 16 18 Blood Pressure 135/83 140/75 H Pulse Oximetry 98 95 Oxygen Delivery Method Room Air Room Air BMI result Body Mass Index 30.1 Appearance: Alert. Oriented at baseline No acute distress. able to ambulate without issue in the ED with me. very hard of hearing. Eyes: Pupils equal, round and reactive to light. ENT: Pharynx normal. Neck: Normal inspection. Neck supple. CVS: Normal heart rate and rhythm. Pulses normal. Respiratory: No respiratory distress. Breath sounds normal. Abdomen: Soft and non-tender. Skin: Skin warm and dry. Normal skin color. Normal skin turgor. Extremities: trace bilateral ankle pitting lower extremity edema. No calf ttp Neuro: Oriented at baseline No motor deficit. No sensory deficit. Course Course Course Narrative: Patient complains of bilateral knee pain and left lower leg pain over past week Bilateral knee x-ray and left lower extremity ultrasound rule out DVT ordered This rapid medical exam in triage pending full evaluation and disposition by ER provider Medical Decision Making Medical Decision Making MDM Narrative: 83 yo male with PMH of CHF, HTN, BPH, GERD, cognitive impairment, anticoagulated on xarelto notes l leg pain for 3 months and then 1 month more prominent today it ached more in his calf when he walks - no trauma, redness, fevers, increased swelling, NV intact. At this time xray and DVT study done. He has baseline gait will give tylenol and jarod wrap refer to orthopedics as needed. Differential Diagnosis Differential Diagnoses: The differential diagnosis associated with the presentation includes effusion, arthritis, strain, sprain Admission/Observation Consideration of admission/observation: Escalation of care including admission/observation considered Independent Interpretation I performed an independent interpretation of an: Plain X-Ray (osteopenia) and Ultrasound (no DVT) Independent Historian Clinical information obtained from an independent historian. History obtained from or confirmed by: Spouse External Record Review External record reviewed: Inpatient record Discharge Plan Discharge Clinical Impression: Osteoarthritis Qualifiers: Osteoarthritis location: knee Osteoarthritis type: primary Laterality: bilateral Qualified Code(s): M17.0 - Bilateral primary osteoarthritis of knee Patient Disposition: Home, Self-Care Instructions: Osteoarthritis (ED), Leg Pain (ED) Additional Instructions: no fracture, no blood clot seen. you have no signs of infection on lower extremity. you can follow up with our orthopedics team for your leg pain you will have to call to schedule an appointment return for cold blue toes red inflammed skin fevers or any other concerns. Prescriptions: No Action pravastatin 40 mg tablet 40 mg PO QPM melatonin 3 mg tablet 3 mg PO BEDTIME PRN (Reason: Sleep) clopidogrel 75 mg tablet 75 mg PO DAILY tamsulosin 0.4 mg capsule 0.4 mg PO DAILY amlodipine 10 mg tablet 10 mg PO DAILY pantoprazole 40 mg tablet,delayed release (DR/EC) 40 mg PO DAILY furosemide 20 mg tablet 20 mg PO BID finasteride 5 mg tablet 5 mg PO DAILY solifenacin 10 mg tablet 10 mg PO DAILY Xarelto 15 mg tablet 15 mg PO DAILY benzonatate 100 mg Capsule 100 mg PO TID PRN (Reason: Cough) Qty: 20 0RF prednisone 20 mg Tablet 20 mg PO DAILY Qty: 4 0RF oseltamivir 30 mg Capsule 30 mg PO Q12H Qty: 5 0RF Referrals: Ryley Cotton PA-C [Physician Tube Machine Operator] - (any provider call to schedule appointment)
[2023-07-25 20:41] VITALS: BP 140/75; PULSE 65; RESP 18; TEMP 36.6; O2SAT 95
[2023-07-25] MEDS: Acetaminophen 325 MG TABLET 975 MG PO (23:09)
== END 2023-07-25 23:20 | disposition home or self-care (01) ==
LOC: HO.ED 23:18
PROVIDERS: Emergency Provider Emergency Medicine
DX: M17.0 Bilateral primary osteoarthritis of knee (principal); M79.605 Pain in left leg; M25.562 Pain in left knee; M25.561 Pain in right knee; I11.0 Hypertensive heart disease with heart failure; I50.9 Heart failure, unspecified; E78.5 Hyperlipidemia, unspecified; Z79.02 Long term (current) use of antithrombotics/antiplatelets; Z79.899 Other long term (current) drug therapy
CPT/HCPCS: 73562; 93971; 99284

== ENCOUNTER 2023-08-22 19:56 | Emergency (ER) | payer MEDICARE, SELFPAY ==
--- NOTE | ~2023-08-22 | CT_ITS ---
EXAMINATION: CT HEAD WITHOUT CONTRAST CLINICAL INFORMATION: Left-sided weakness. History of CVA. COMPARISON: None available. TECHNIQUE: Contiguous axial imaging was performed from the skull base to vertex without intravenous administration of contrast. This CT examination was performed using dose optimization techniques as appropriate, variously including the following: *Automated exposure control *Adjustment of mA and/or kV according to patient size (this includes techniques or standardized protocols for targeted exams where dose is matched to indication/reason for exam; i.e. extremities or head) *Use of iterative reconstruction technique DLP: 1268 mGy-cm FINDINGS: The ventricles and sulci are enlarged consistent with diffuse atrophy. No visualized masses or midline shift are seen. There is no intra-axial or extra-axial hemorrhage. There are no fluid collections. Decreased attenuation is seen in the periventricular white matter compatible with chronic small vessel ischemic disease. The cao-white discrimination is preserved. Complete opacification of the left maxillary sinus. Otherwise, the visualized paranasal sinuses and mastoid air cells are well aerated. The calvarium is intact. CT/CT head/brain wo IV con IMPRESSION: No intracranial hemorrhage or mass effect. Generalized atrophy and chronic small vessel white matter ischemic changes.
[2023-08-22 20:24] VITALS: BP 130/70; PULSE 81; O2SAT 99
--- NOTE | 2023-08-22 20:25 | ECG_ITS ---
Test Reason : CHEST PAIN Blood Pressure : / mmHG Vent. Rate : 063 BPM Atrial Rate : 000 BPM P-R Int : 000 ms QRS Dur : 126 ms QT Int : 434 ms P-R-T Axes : 000 -49 101 degrees QTc Int : 444 ms Ventricular-paced rhythm Abnormal ECG When compared with ECG of 06-JUN-2023 11:58, No significant changes seen Referred By: Generic ED Physician Electronically Signed By:LASHELL WONG MD
[2023-08-22 20:38] VITALS: BP 172/91; PULSE 64; TEMP 36.6; O2SAT 98; BMI 31.3
[2023-08-22 20:57] LABS: MANUAL DIFF FLAG NO
[2023-08-22 21:12] LABS: Basophils Percent Auto 0.3 % (0-2); Eosinophils Absolute Auto 0.1 X10*3/uL (0.0-0.4); Eosinophils Percent Auto 0.5 % (0-4); Hematocrit 46.8 % (42.0-52.0); Hemoglobin 15.5 g/dl (14.0-18.0); Imm Gran Abs Auto 0.05 X10*3/uL (0.00-0.03); Imm Gran Pct Auto 0.4 % (0.0-0.4); Lymphocytes Percent Auto 8.2 % (20-40); Mean Corpuscular HGB Conc 33.1 g/dl (31.0-36.0); Mean Corpuscular Volume 87.6 fL (80.0-98.0); Mean Platelet Volume 10.9 fL (9.4-12.4); Monocytes Absolute Auto 0.7 X10*3/uL (0.1-1.2); Neutrophils Absolute Auto 9.9 x10*3/uL (2.0-8.3); Neutrophils Percent Auto 84.6 % (45-73); Platelet Count 212 X10*3/uL (160-400); Red Blood Count 5.34 X10*6/uL (4.60-5.80); Red Cell Distribution Width 15.5 % (11.0-16.0); White Blood Count 11.8 X10*3/uL (4.8-10.8)
--- NOTE | 2023-08-22 21:15 | ED_ITS ---
HPI - Chest Pain General Chief Complaint: Chest Pain Stated Complaint: WEAKNESS,UNABLE TO AMBULATE,FLU LAST WEEK Time Seen by Provider: 08/22/23 21:12 Source: patient and family Mode of arrival: EMS Limitations: no limitations History of Present Illness HPI narrative: Patient is 3 years old male with history of CHF, hypertension, hyperlipidemia, BPH status post PPM, just had the flu on 06/05/23 had CHF at that time was doing good lately when for dinner while sitting waiting for dinner started having left-sided arm pain going to the left leg with generalized weakness was unable to get up from the seat patient denies any chest pain does have chronic left- sided pain in the past 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 Related Data Home Medications Medication Instructions Recorded Confirmed amlodipine 10 mg tablet 10 mg PO DAILY 06/06/23 06/06/23 clopidogrel 75 mg tablet 75 mg PO DAILY 06/06/23 06/06/23 finasteride 5 mg tablet 5 mg PO DAILY 06/06/23 06/06/23 furosemide 20 mg tablet 20 mg PO BID 06/06/23 06/06/23 melatonin 3 mg tablet 3 mg PO BEDTIME PRN Sleep 06/06/23 06/06/23 pantoprazole 40 mg tablet,delayed 40 mg PO DAILY 06/06/23 06/06/23 release pravastatin 40 mg tablet 40 mg PO QPM 06/06/23 06/06/23 rivaroxaban 15 mg tablet (Xarelto) 15 mg PO DAILY 06/06/23 06/06/23 solifenacin 10 mg tablet 10 mg PO DAILY 06/06/23 06/06/23 tamsulosin 0.4 mg capsule 0.4 mg PO DAILY 06/06/23 06/06/23 Previous Rx's Medication Instructions Recorded benzonatate 100 mg capsule 100 mg PO TID PRN Cough #20 caps 06/08/23 oseltamivir 30 mg capsule 30 mg PO Q12H #5 caps 06/08/23 prednisone 20 mg tablet 20 mg PO DAILY #4 tabs 06/08/23 tramadol 50 mg tablet 50 mg PO Q6H PRN pain #20 tabs 08/22/23 Allergies Allergy/AdvReac Type Severity Reaction Status Date / Time No Known Drug Allergies Allergy Unknown NONE Verified 07/25/23 17:07 [NO KNOWN DRUG ALLERGIES] Review of Systems 2 Review of Systems: Yes all other systems are reviewed and are negative [facility] Past Medical History Medical History Pacemaker CVA (cerebral vascular accident) GERD (gastroesophageal reflux disease) HTN (hypertension) BPH (benign prostatic hyperplasia) HLD (hyperlipidemia) Social History Social History Household Members: Significant Other Housing: House Do you presently have visiting nurse or other home services: No Alcohol intake: never Comment: 1:1 sitter Patient Tobacco Use Status: Never used Tobacco Second Hand Smoke Exposure: No Advance Directives: Yes Advance Directives on File: Yes Advance Directives Date on File: 06/06/23 service: No Physical Exam 2 Vital Signs: Vital Signs: Last Vital Signs Temp 98.6 F 08/22/23 22:00 Pulse 60 08/22/23 22:00 Resp 16 08/22/23 22:00 BP 158/76 H 08/22/23 22:00 Pulse Ox 98 08/22/23 22:00 O2 Del Method Room Air 08/22/23 22:00 BMI result Body Mass Index 31.3 Appearance: Alert. Oriented X3. No acute distress. Eyes: PERRLA, No Nystagmus ENT: Pharynx normal. Oral Mucosa moist Neck: Normal inspection. Neck supple. CVS: Normal heart rate and rhythm. Pulses normal. Respiratory: No respiratory distress. Equal air entry bilateral, no wheezing/rales/rhonchi Abdomen: Soft and nontender. Bowel sounds are present, no mass palpable, no CVA tenderness Skin: Skin warm and dry. Normal skin color. Normal skin turgor. Extremities: No lower extremity edema. No calf tenderness Neuro: Oriented X 3. No motor deficit. No sensory deficit.No cerebellar signs , cranial nerves II-XII intact Medical Decision Making Medical Decision Making MDM Narrative: Patient with multiple CVAs in the past status post stent placement on Plavix and Xarelto came for increased pain on the left side unable to get up from the seat no focal weakness noticed in the ER no chest pain cardiac enzymes negative patient does have this chronic pain on the left side taking only Tylenol will give him tramadol patient ambulatory in the ED without any ataxia will discharge patient home advised to follow with PCP Differential Diagnosis Differential Diagnoses: The differential diagnosis associated with the presentation includes As above Lab Data MDM Lab Attestation statement: I reviewed the patient's lab results. 08/22/23 20:51 08/22/23 20:51 Labs: Lab Results 08/22/23 Range/Units 20:51 WBC 11.8 H (4.8-10.8) X10*3/uL RBC 5.34 (4.60-5.80) X10*6/uL Hgb 15.5 (14.0-18.0) g/dl Hct 46.8 (42.0-52.0) % MCV 87.6 (80.0-98.0) fL MCH 29.0 (27.0-33.0) pg MCHC 33.1 (31.0-36.0) g/dl RDW 15.5 (11.0-16.0) % Plt Count 212 D (160-400) X10*3/uL MPV 10.9 (9.4-12.4) fL Immature Gran % (Auto) 0.4 (0.0-0.4) % Neut % (Auto) 84.6 H (45-73) % Lymph % (Auto) 8.2 L (20-40) % [place] % (Auto) 6.0 (2-11) % Eos % (Auto) 0.5 (0-4) % Baso % (Auto) 0.3 (0-2) % Lymph # (Auto) 1.0 L (1.2-4.9) X10*3/uL [place] # (Auto) 0.7 (0.1-1.2) X10*3/uL Eos # (Auto) 0.1 (0.0-0.4) X10*3/uL Baso # (Auto) 0.0 (0.0-0.2) X10*3/uL Abs Immat Gran (auto) 0.05 H (0.00-0.03) X10*3/uL Absolute Neuts (auto) 9.9 H (2.0-8.3) x10*3/uL Absolute Nucleated RBC 0.000 (0.0-0.012) X10*3/uL Nucleated RBC % (auto) 0.0 (0.0-0.2) /100WBC Sodium 140 (135-145) mmol/L Potassium 4.3 (3.3-5.1) mmol/L Chloride 103 (96-108) mmol/L Carbon Dioxide 26 (22-29) mmol/L Anion Gap 15 (12-20) BUN 26 H (9-16) mg/dL Creatinine 1.29 (0.5-1.4) mg/dL Estim Creat Clear Calc 51.1 Estimated GFR 53 Random Glucose 139 H (60-115) mg/dL Calcium 9.2 D (8.4-10.2) mg/dL Troponin I High Sens 17.3 D (<3.5-35.0) ng/L Independent Interpretation I performed an independent interpretation of an: EKG and CT Scan Interpretation: Wide complex QRS rhythm ventricle paced rhythm left axis deviation poor progression of R-wave no acute ST elevation Radiology Impression Discussion of test interpretation with radiology: I have reviewed the radiologist's reading. Discharge Plan Discharge Clinical Impression: Weakness, Chronic pain Patient Disposition: Home, Self-Care Instructions: Chronic Pain (ED), Weakness (ED) Additional Instructions: Your CT scan of the head is negative for any acute stroke Take pain medication as prescribed and follow with PCP Prescriptions: New tramadol 50 mg tablet 50 mg PO Q6H PRN (Reason: pain) Qty: 20 0RF No Action pravastatin 40 mg tablet 40 mg PO QPM melatonin 3 mg tablet 3 mg PO BEDTIME PRN (Reason: Sleep) clopidogrel 75 mg tablet 75 mg PO DAILY tamsulosin 0.4 mg capsule 0.4 mg PO DAILY amlodipine 10 mg tablet 10 mg PO DAILY pantoprazole 40 mg tablet,delayed release (DR/EC) 40 mg PO DAILY furosemide 20 mg tablet 20 mg PO BID finasteride 5 mg tablet 5 mg PO DAILY solifenacin 10 mg tablet 10 mg PO DAILY Xarelto 15 mg tablet 15 mg PO DAILY benzonatate 100 mg Capsule 100 mg PO TID PRN (Reason: Cough) Qty: 20 0RF prednisone 20 mg Tablet 20 mg PO DAILY Qty: 4 0RF oseltamivir 30 mg Capsule 30 mg PO Q12H Qty: 5 0RF
[2023-08-22 21:17] LABS: Anion Gap 15 (12-20); Blood Urea Nitrogen 26 mg/dL (9-16); Calcium 9.2 mg/dL (8.4-10.2); Carbon Dioxide 26 mmol/L (22-29); Chloride 103 mmol/L (96-108); Creatinine Clr Calc Pharmacy 51.1; Estimated Glomerular Filt Rate 53; Glucose Random 139 mg/dL (60-115); Potassium 4.3 mmol/L (3.3-5.1); Sodium 140 mmol/L (135-145); Troponin-I High Sensitivity 17.3 ng/L (<3.5-35.0)
[2023-08-22 22:00] VITALS: BP 158/76; PULSE 60; RESP 16; TEMP 37; O2SAT 98
[2023-08-22 23:57] VITALS: BP 135/81; PULSE 63; RESP 18; TEMP 36.9; O2SAT 98
--- NOTE | 2023-08-22 23:58 | MHC.EDTECH ---
This tech took over care of patient at 2300,hourly rounds and vitals completed,patient ambulated with a steady gait,and is waiting to be discharged at this time.
[2023-08-23] MEDS: traMADoL HCL 50 MG TABLET PO (00:01)
== END 2023-08-23 00:10 | disposition home or self-care (01) ==
PROVIDERS: Emergency Provider Internal Medicine; PCP Internal Medicine Medical Oncology
DX: R07.89 Other chest pain (principal); R53.1 Weakness; M79.10 Myalgia, unspecified site; Z86.73 Personal history of transient ischemic attack (TIA), and cerebral infarction without residual deficits; Z79.899 Other long term (current) drug therapy
CPT/HCPCS: 36415; 70450; 80048; 84484; 85025; 93005; 99284; 99285

== ENCOUNTER → 2023-08-22 20:25 | Outpatient (BNV) | payer MEDICARE, SELFPAY | PROVIDERS: Emergency Provider Internal Medicine; PCP Internal Medicine Medical Oncology; Visit Provider Internal Medicine Cardiovascular Disease | DX: R94.31 Abnormal electrocardiogram [ECG] [EKG] (principal) | CPT/HCPCS: 93010 ==